=== PATIENT | female | born 1965 | race Caucasian/White ===

== ENCOUNTER 2016-09-09 20:20 | Emergency (ER) | payer SELFPAY ==
[2016-09-09 20:21] VITALS: BP 139/80; PULSE 88; RESP 16; TEMP 98.4; O2SAT 100
== END 2016-09-09 22:00 | disposition left against medical advice (07) ==
LOC: NED 20:20
DX: M54.9 Dorsalgia, unspecified (principal)
CPT/HCPCS: 99281